=== PATIENT | female | born 2000 | race Caucasian/White ===

== ENCOUNTER 2018-11-21 17:33 | Emergency (ER) | payer OTHER ==
[~2018-11-21] VITALS: Ht 172.7 cm; Wt 59.0 kg
--- NOTE | 2018-11-21 17:52 | NUR ---
JAIME FERRERA AT BEDSIDE FOR MSE.
--- NOTE | 2018-11-21 17:58 | NUR ---
Patient discharged to home in stable conditon. Written and verbal after care instructions given. Patient verbalizes understanding of instructions. ALL BELONGINGS W/ PT. PT SELF-AMBULATED W/O DIFFICULTY.
[2018-11-21 18:00] VITALS: BP 113/66
== END 2018-11-21 18:04 | disposition home or self-care (01) ==
LOC: ER 17:37
DX: F32.9 Major depressive disorder, single episode, unspecified (principal); F41.9 Anxiety disorder, unspecified; Z90.89 Acquired absence of other organs
CPT/HCPCS: A4663